=== PATIENT | female | born 1950 | race Two or more races ===

== ENCOUNTER 2022-07-07 10:44 | Emergency (ER) | payer OTHER ==
[~2022-07-07] VITALS: Ht 162.6 cm; Wt 88.0 kg
[2022-07-07] MEDS ORDERED: PLAVIX75 MG PO (11:00)
[2022-07-07] MEDS ORDERED: TOPROL XL100 M1 PO (11:00)
[2022-07-07] MEDS ORDERED: ZITHROMAX500 MG PO (14:06)
[2022-07-07] MEDS ORDERED: FLONASE ALLERG9.9 ML NASAL (14:08)
== END 2022-07-07 14:33 | disposition home or self-care (01) ==
LOC: ER 10:44
DX: J06.9 Acute upper respiratory infection, unspecified (principal); Z20.822 Contact with and (suspected) exposure to COVID-19; Z88.6 Allergy status to analgesic agent

== ENCOUNTER 2022-07-09 07:24 | Emergency (ER) | payer OTHER ==
[~2022-07-09] VITALS: Ht 162.6 cm; Wt 83.9 kg
[~2022-07-09 07:24] MED LIST: FLONASE ALLERG9.9 ML NASAL; PLAVIX75 MG PO; TOPROL XL100 M1 PO; ZITHROMAX500 MG PO
== END 2022-07-09 10:10 | disposition home or self-care (01) ==
LOC: ER 07:24
DX: J40 Bronchitis, not specified as acute or chronic (principal); I49.8 Other specified cardiac arrhythmias; Z88.6 Allergy status to analgesic agent